=== PATIENT | male | born 1990 | race African-American/Black ===

== ENCOUNTER 2020-04-07 08:02 | Observation (INO) | payer OTHER ==
[~2020-04-07] VITALS: Ht 172.7 cm; Wt 91.2 kg
[2020-04-07] MEDS ORDERED: NS 2,500 ML in IV 1 EA IV ONE (08:30)
[2020-04-07] MEDS ORDERED: ACETAMINOPHEN 500 MG TAB PO ONE (08:30)
[2020-04-07 09:30] LABS: BASO # 0.1 10^3/uL (0.0-0.2); BASO % 0.6 % (0.0-1.0); EOS # 0.4 10^3/uL (0.0-0.5); EOS % 2.6 % (0.0-3.0); HEMATOCRIT 46.4 % (42.0-52.0); HEMOGLOBIN 14.4 g/dl (13.5-17.5); LYMPH # 4.3 10^3/uL (1.5-5.0); LYMPH % 27.9 % (24.0-44.0); MEAN CORPUSCULAR HEMOGLOBIN 22.7 pg (27.0-33.0); MEAN CORPUSCULAR VOLUME 73.3 fl (80.0-96.0); MONO # 0.8 10^3/uL (0.0-0.8); MONO % 4.9 % (0.0-5.0); NEUTROPHILS # 9.1 10^3/uL (1.5-8.5); NEUTROPHILS % 59.5 % (36.0-66.0); PLATELET COUNT, AUTOMATED 227 10^3/uL (150-450); RED BLOOD COUNT 6.33 10^6/uL (4.30-6.10); WHITE BLOOD COUNT 15.3 10^3/uL (4.0-10.0)
--- NOTE | 2020-04-07 09:35 | REPVR ---
PROCEDURE INFORMATION: Exam: XR Chest, 1 View Exam date and time: 04/07/2020 8:41 AM Age: 30 years old Clinical indication: Cough and dyspnea; Additional info: Dyspnea/cough TECHNIQUE: Imaging protocol: XR of the chest Views: 1 view. COMPARISON: No relevant prior studies available. FINDINGS: Lungs: Low lung volumes. No consolidation. Pleural space: Unremarkable. No pleural effusion. No pneumothorax. Heart/Mediastinum: Unremarkable. No cardiomegaly. Bones/joints: Unremarkable. IMPRESSION: No acute abnormalities are identified. Electronically signed by: Prince Pierce On 04/07/2020 09:35:09 AM
[2020-04-07 09:59] LABS: ALBUMIN 3.9 GM/DL (3.2-5.2); BILIRUBIN,DIRECT 0.1 MG/DL (0.0-0.2); BILIRUBIN,TOTAL 0.3 MG/DL (0.2-1.0); CALCIUM LEVEL 9.1 MG/DL (8.5-10.1); CK-MB VALUE MASS 6.7 NG/ML (<3.6); CREATININE FOR GFR 2.72 MG/DL (0.70-1.30); GLOMERULAR FILTRATION RATE 29.4 (>60); MB/CK RELATIVE INDEX 0.13 (< OR =4); POTASSIUM SERUM 4.3 MEQ/L (3.5-5.1); THYROID STIMULATING HORMONE 0.938 uIU/ML (0.358-3.740); THYROXINE (T4) 8.5 UG/DL (4.5-12.0); TOTAL PROTEIN 7.5 GM/DL (6.4-8.2); TROPONIN I 0.18 NG/ML (< 0.10)
[2020-04-07] MEDS ORDERED: PIPERACILLIN/TAZOBACTAM SOD 3.375 GM in D5W MINI-BAG PLUS 50 ML IV ONE (11:00)
[2020-04-07 16:10] VITALS: BP 106/71
[2020-04-07] MEDS: ENOXAPARIN 40MG/0.4ML SYRINGE (J1650 PER 10MG) SC SCH (16:52)
[2020-04-07] MEDS: ACETAMINOPHEN 500 MG TAB PO PRN (16:56)
[2020-04-07 22:00] VITALS: BP 112/68
[2020-04-08] MEDS: ACETAMINOPHEN 500 MG TAB PO PRN ×3 (01:14→20:23)
[2020-04-08 05:58] LABS: HEMOGLOBIN 13.2 g/dl (13.5-17.5); MEAN CORPUSCULAR HEMOGLOBIN 23.2 pg (27.0-33.0); MEAN CORPUSCULAR HGB CONC 31.4 g/dl (32.0-36.5); MEAN CORPUSCULAR VOLUME 73.8 fl (80.0-96.0); PLATELET COUNT, AUTOMATED 157 10^3/uL (150-450); RED BLOOD COUNT 5.69 10^6/uL (4.30-6.10); WHITE BLOOD COUNT 9.9 10^3/uL (4.0-10.0)
[2020-04-08 06:00] VITALS: BP 119/69
[2020-04-08 06:23] LABS: CALCIUM LEVEL 8.4 MG/DL (8.5-10.1); CREATININE FOR GFR 2.85 MG/DL (0.70-1.30); GLOMERULAR FILTRATION RATE 33.8 (>60); POTASSIUM SERUM 3.7 MEQ/L (3.5-5.1)
[2020-04-08] MEDS: ENOXAPARIN 40MG/0.4ML SYRINGE (J1650 PER 10MG) SC SCH (09:27)
[2020-04-08 14:00] VITALS: BP 115/72
[2020-04-08] MEDS ORDERED: LR 1,000 ML IV ONE (15:00)
[2020-04-08] MEDS: traMADol 50 MG TAB PO PRN ×2 (15:11→22:08)
[2020-04-08] MEDS: LR 1,000 ML IV SCH (16:31)
--- NOTE | 2020-04-08 19:56 | HPEPDOC ---
[facility] Medical History & Physical Date of Admission Apr 07, 2020 Date of Service: Apr 07, 2020 History and Physical Chief complaint: Loss of consciousness History of present illness: 30-year-old male with no significant past medical history presented to the following loss of consciousness episode during his PT test for assessment. Patient reports feeling fairly warm and denies having memory. He was very lethargic on presentation and noted diffuse discomfort in his arms and legs. No shortness of breath or chest pain. He denies nausea vomiting prior to today's episode. No sick contacts. Denies previous such episode Past Medical History: None Past Surgical History: No recent Allergies: No known Medications:none Family History: - no cudden deaths, no cardiac disorders in the faamily, no arrythmias, no hx of [place] at a young age Social History: - Denies the use of alcohol, tobacco or illicit drugs - Denies recent travel or sick contacts - Lives with and two kids - Occupation Review of Systems: [10 point review of systems complete, all negative otherwise stated in HPI] Constitutional: Denies weight loss, change in appetite, or recent trauma Eyes: No visual changes or eye pain Ears, Nose, Throat: Denies nose bleeds, or difficulty swallowing Cardiovascular: Denies chest pain, sweating, or orthopnea Respiratory: Denies cough, wheezing, or shortness of breath GI: Natan nausea, vomiting, abdominal pain, diarrhea or constipation : Denies pain with urination or frequency Musculoskeletal: Denies joint pain or swelling Neuro / Psych: Denies muscle weakness or sensory loss Skin: No skin rashes noted All other review of systems negative; otherwise stated in history of present illness Physical exam: vitals see below - General: Lying in bed, No acute distress, Speaking in full sentences, AAOx3 - HEENT: NC, AT, PERRLA, EOMI - CVS: RRR, +S1S2, - Murmurs / rubs / gallops - Lungs: Fair air entry bilaterally, Clear to auscultation, No wheezing / rales / rhonchi - Abdomen: Soft, Non-distended, Non-tender, + Bowel sounds x 4 - Extremities: + PPx4, No lower extremity edema, No calf tenderness - Neuro: No focal motor or sensory deficit - Skin: No visible rashes Labs: see below Imaging: ncxr reviwed EKG: no blocks Assessment and Plan: 1. Syncope: will obtain 08/09 without any structural causes. Suspecting likely secondary to rhabdomyolysis. 2. RAMIRO: suspecting secondary to myoglobin injury, continue IV hydration 3. Possible heatstroke: will monitor DVT prophylaxis - Will start lovenox 40mg sq Vital Signs Vital Signs Date Time Temp Pulse Resp B/P (MAP) Pulse Ox O2 Delivery O2 Flow Rate FiO2 04/08/20 15:41 18 04/08/20 14:00 97.5 70 115/72 (86) 98 Room Air Laboratory Data Labs 24H Laboratory Tests 2 04/08/20 05:30: Nucleated Red Blood Cells % (auto) 0.0, Anion Gap 8, Glomerular Filtration Rate 33.8L, Calcium Level 8.4L CBC/BMP Laboratory Tests 04/08/20 05:30 Microbiology Microbiology 04/07/20 Blood Culture - Preliminary, Resulted No growth after 24 hours . All specim... 04/07/20 Urine Culture - Final, Complete 04/07/20 Respiratory Virus Panel (PCR) (IAN) - Final, Complete Human Rhinovirus/Enterovirus 04/07/20 Blood Culture - Preliminary, Resulted No growth after 24 hours . All specim... 04/07/20 Blood Culture - Preliminary, Resulted No growth after 24 hours . All specim... Home Medications No Active Prescriptions or Reported Meds Allergies Coded Allergies: No Known Allergies (Unverified , 04/07/20) A-FIB/CHADSVASC A-FIB History Current/History of A-Fib/PAF?: No Current PO Anticoag Therapy: No BENY COLÓN DO Apr 08, 2020 19:56
[2020-04-08 22:00] VITALS: BP 118/74
--- NOTE | 2020-04-08 23:58 | IPNPDOC ---
Text Note Date of Service The patient was seen on 04/08/20. NOTE SUBJECTIVE: reports persistent weakness diffusely OBJECTIVE: FOCUSED EXAMINATION: General: Pleasant, NAD HEENT: NC, AT. EOMI, no scleral icterus. No pharyngeal erythema, mucous membranes moist. Neck: No lymphadenopathy or JVD CV: RRR, Normal S1 and S2. No murmurs, gallops, or rubs. Resp: CTAB with full breath sounds. No wheezes, crackles, or rhonchi. No dullness to percussion. Abdomen: Bowel sounds present. Soft, NT, ND. Extremities: No swelling or edema. VITAL SIGNS: Please see below. ASSESSMENT and PLAN: 1. RAMIRO: seconbdary to rhabdo. started IVF, will avoid nephrotoxic agents VS,Fishbone, I+O VS, Fishbone, I+O Laboratory Tests 04/08/20 05:30 Vital Signs Date Time Temp Pulse Resp B/P (MAP) Pulse Ox O2 Delivery O2 Flow Rate FiO2 04/08/20 22:08 16 04/08/20 22:00 98.3 66 118/74 (89) 97 Room Air I&O- Last 24 Hours up to 6 AM 04/08/20 06:00 Intake Total 3170 ml Output Total 1825 ml Balance 1345 ml BENY COLÓN DO Apr 08, 2020 23:58
[2020-04-09] MEDS ORDERED: ONDANSETRON 4 MG ORAL DISINTEGRATING TAB PO ONE (04:15)
[2020-04-09] MEDS: traMADol 50 MG TAB PO PRN ×2 (04:33→10:39)
[2020-04-09] MEDS: LR 1,000 ML IV SCH (04:34)
[2020-04-09 06:00] VITALS: BP 118/73
[2020-04-09 09:27] LABS: HEMATOCRIT 40.3 % (42.0-52.0); HEMOGLOBIN 12.6 g/dl (13.5-17.5); MEAN CORPUSCULAR HEMOGLOBIN 23.2 pg (27.0-33.0); MEAN CORPUSCULAR HGB CONC 31.3 g/dl (32.0-36.5); MEAN CORPUSCULAR VOLUME 74.1 fl (80.0-96.0); PLATELET COUNT, AUTOMATED 166 10^3/uL (150-450); RED BLOOD COUNT 5.44 10^6/uL (4.30-6.10); WHITE BLOOD COUNT 6.7 10^3/uL (4.0-10.0)
[2020-04-09 09:46] LABS: CALCIUM LEVEL 8.3 MG/DL (8.5-10.1); CREATININE FOR GFR 2.04 MG/DL (0.70-1.30); GLOMERULAR FILTRATION RATE 49.7 (>60); POTASSIUM SERUM 3.8 MEQ/L (3.5-5.1)
[2020-04-09] MEDS: ENOXAPARIN 40MG/0.4ML SYRINGE (J1650 PER 10MG) SC SCH (10:37)
--- NOTE | 2020-04-12 12:14 | ECHO ---
DATE OF PROCEDURE: 04/07/2020 Age: 30 REFERRING PHYSICIAN: Dr. Baldwin REASON FOR STUDY: Syncope. 2D MEASUREMENTS: IVS 1.1 cm LV 4.3 cm LVPW 0.8 LA 2.8 cm Aorta 2.7 cm IVC 1.8 cm DOPPLER MEASUREMENT Peak velocity across the aortic valve 1.1 mm/s Peak velocity across the LVOT 0.9 mm/s Mitral E 0.9 Mitral A 0.74 with a ratio of 1.3 2D COMMENTS: 1. Normal left ventricle size, wall thickness, and normal global left ventricular systolic function. The estimated left ventricular ejection fraction is 60% to 65%. 2. Normal left atrium. Normal right atrium and right ventricle. 3. The atrial septum appears to normal without evidence of defect or shunt. 4. Normal aortic root. 5. No pericardial effusion seen. 6. The aortic valve, mitral valve, and tricuspid valve, as well as the pulmonic valve appear to be normal. The proximal pulmonary artery branches were not well visualized. 7. The inferior vena cava was normal in size. Central venous pressure is mostly likely normal. DOPPLER: It shows no significant valvular abnormalities detected. Abnormal relaxation pattern was noted across the mitral valve leaflets, as well as the mitral valve annulus consistent with features of grade 1 left ventricular diastolic dysfunction. IMPRESSION: 1. Normal global left ventricular systolic function. There are some features of left ventricular diastolic dysfunction manifested by abnormal relaxation. 2. No valvular abnormalities detected. MTDD
--- NOTE | 2020-04-13 17:04 | REP ---
ABDOMINAL RADIOGRAPH CLINICAL: Abdominal pain. TECHNIQUE: Single supine view of the abdomen and pelvis. FINDINGS: Bowel gas pattern is nonspecific. No organomegaly. No abnormal calcifications or foreign body. Skeletal structures are intact. IMPRESSION: Normal nonspecific abdominal radiograph. MTDD
--- NOTE | 2020-04-19 09:19 | ECGEPIP ---
[facility] - ED Test Date: 2020-04-07 Pat Name: KOLTON TERRAZAS Department: Room: - Gender: Male Scientific Aide: DESMOND : 1990 Requested By: JULIA Hansen Order Number: [id number] Reading MD: Hetal Diaz Measurements Intervals [place] Rate: 139 P: 52 TX: 126 QRS: 58 QRSD: 80 T: 251 QT: 267 QTc: 407 Interpretive Statements SINUS TACHYCARDIA MODERATE T-WAVE ABNORMALITY, CONSIDER LATERAL ISCHEMIA MODERATE T-WAVE ABNORMALITY, CONSIDER INFERIOR ISCHEMIA ABNORMAL ECG CLINICAL CORRELATE SEE SCANNED DOWNTIME REPORT
--- NOTE | 2020-05-03 11:48 | REP ---
SACRUM AND COCCYX STUDY CLINICAL: Pain on palpation. TECHNIQUE: Three total views of the sacrum and coccyx. FINDINGS: The sacrum and coccyx, as well as the bilateral sacroiliac joints appear symmetric and essentially normal. No obvious pathology is appreciated. IMPRESSION: Age appropriate sacrum and coccyx radiograph series. [facility]
== END 2020-04-09 15:31 | disposition home or self-care (01) ==
LOC: EDBD 08:02 → M ED 08:02 → M ED INP 08:03 → M MSPAV 15:09 → ENRESERV 15:17 → M MSPAV 17:05
PROVIDERS: ADMIT Internal Medicine; ATTEND Internal Medicine
DX: M62.82 Rhabdomyolysis (principal); N17.9 Acute kidney failure, unspecified; B34.8 Other viral infections of unspecified site
CPT/HCPCS: 36415; 71045; 72220; 74018; 80048; 80076; 81001; 82550; 82553; 82570; 83605; 84145; 84300; 84436; 84443; 84484; 85025; 85027; 87040; 87086; 87486; 87581; 87633; 87798; 93005; 93041; 93306; 94760; 96361; 96365; 96372; 97161; 97530; 99285; J1650; J2543; Q0162

== ENCOUNTER → 2020-08-04 | Outpatient (CLI) | payer OTHER | LOC: M LABSMTC 12:47 | PROVIDERS: ATTEND Family Medicine | DX: Z20.828 Contact with and (suspected) exposure to other viral communicable diseases (principal) ==

== ENCOUNTER → 2021-05-17 | Outpatient (REF) | payer OTHER ==
[2021-05-17 13:34] LABS: APPEARANCE, URINE CLEAR (CLEAR); BACTERIA, URINE AUTO NEGATIVE (NEGATIVE); BILIRUBIN, URINE AUTO NEGATIVE (NEGATIVE); BLOOD, URINE BLOOD NEGATIVE (NEGATIVE); COLOR, URINE YELLOW (YELLOW); GLUCOSE, URINE (UA) AUTO NEGATIVE (NEGATIVE); KETONE, URINE AUTO NEGATIVE (NEGATIVE); LEUKOCYTE ESTERASE, URINE AUTO 1+ (NEGATIVE); MUCUS, URINE SMALL (NEGATIVE); NITRITE, URINE AUTO NEGATIVE (NEGATIVE); PROTEIN, URINE AUTO NEGATIVE (NEGATIVE); RBC, URINE AUTO 1 /HPF (0-3); SPECIFIC GRAVITY URINE AUTO 1.018 (1.002-1.035); SQUAMOUS EPITHELIAL CELL UR AU 0 /HPF (0-6); UROBILINOGEN, URINE AUTO 0.2 mg/dL (0.0-2.0); WBC, URINE AUTO 11 /HPF (0-3)
[2021-05-17 13:41] LABS: BASO # 0.1 10^3/uL (0.0-0.2); BASO % 0.9 % (0.0-1.0); EOS # 0.2 10^3/uL (0.0-0.5); EOS % 2.8 % (0.0-3.0); HEMATOCRIT 48.3 % (42.0-52.0); HEMOGLOBIN 14.8 g/dl (13.5-17.5); LYMPH # 2.1 10^3/uL (1.5-5.0); LYMPH % 31.9 % (24.0-44.0); MEAN CORPUSCULAR HEMOGLOBIN 22.6 pg (27.0-33.0); MEAN CORPUSCULAR HGB CONC 30.6 g/dl (32.0-36.5); MEAN CORPUSCULAR VOLUME 73.7 fl (80.0-96.0); MONO # 0.5 10^3/uL (0.0-0.8); MONO % 8.2 % (2.0-8.0); NEUTROPHILS # 3.6 10^3/uL (1.5-8.5); NEUTROPHILS % 55.9 % (36.0-66.0); PLATELET COUNT, AUTOMATED 263 10^3/uL (150-450); RED BLOOD COUNT 6.55 10^6/uL (4.30-6.10); WHITE BLOOD COUNT 6.4 10^3/uL (4.0-10.0)
[2021-05-17 13:57] LABS: ALBUMIN 4.2 GM/DL (3.2-5.2); ALT/SGPT 49 U/L (12-78); BILIRUBIN,TOTAL 0.6 MG/DL (0.2-1.0); BLOOD UREA NITROGEN 14 MG/DL (7-18); C REACTIVE PROTEIN QUANTITATIV 0.38 MG/DL (0.00-0.30); CALCIUM LEVEL 9.7 MG/DL (8.5-10.1); CARBON DIOXIDE LEVEL 29 MEQ/L (21-32); CHLORIDE LEVEL 108 MEQ/L (98-107); CPK CREATINE PHOSPHOKINASE 1842 U/L (39-308); CREATININE FOR GFR 1.58 MG/DL (0.70-1.30); GLOMERULAR FILTRATION RATE 54.7 (>60); GLUCOSE, FASTING 97 MG/DL (70-100); LDH LACTATE DEHYDROGENASE 220 U/L (87-241); POTASSIUM SERUM 4.1 MEQ/L (3.5-5.1); RHEUMATOID FACTOR QUANT < 10.0 IU/ML (<15.0); SODIUM LEVEL 141 MEQ/L (136-145); TOTAL PROTEIN 7.9 GM/DL (6.4-8.2)
[2021-05-17 14:06] LABS: ERYTHROCYTE SEDIMENTATION RATE 2 mm/hr (0-15)
[2021-05-17 14:23] LABS: TOTAL PROTEIN,RANDOM URINE 17.9 MG/DL (0.0-12.0)
[2021-05-23 15:07] LABS: ALDOLASE 12.1 U/L (3.3-10.3); ANA (HEP2) Negative (.); CYCLIC CITRULLINATED PEPTIDE 7 units (0-19); HLA-B27 Negative (.)
== END ==
LOC: M SFHCRHEU 10:26
PROVIDERS: ATTEND Internal Medicine Rheumatology
DX: M54.6 Pain in thoracic spine (principal); Z87.39 Personal history of other diseases of the musculoskeletal system and connective tissue

== ENCOUNTER → 2022-01-27 | Outpatient (REF) | payer OTHER ==
[2022-01-30 11:12] LABS: ANTINUCLEAR ANTIBODIES DIRECT Negative (Negative)
== END ==
LOC: M LAB REF 16:55
PROVIDERS: ATTEND Internal Medicine Nephrology
DX: N18.31 Chronic kidney disease, stage 3a (principal)

== ENCOUNTER → 2022-02-16 | Outpatient (CLI) | payer OTHER | LOC: M RAD 09:32 | PROVIDERS: ATTEND Internal Medicine Nephrology | DX: N18.31 Chronic kidney disease, stage 3a (principal) ==

== ENCOUNTER → 2022-04-20 | Outpatient (REF) | payer OTHER ==
[2022-04-20 12:41] LABS: BASO # 0.1 10^3/uL (0.0-0.2); BASO % 0.9 % (0.0-1.0); EOS # 0.3 10^3/uL (0.0-0.5); EOS % 5.2 % (0.0-3.0); HEMATOCRIT 47.4 % (42.0-52.0); HEMOGLOBIN 14.4 g/dl (13.5-17.5); LYMPH # 1.9 10^3/uL (1.5-5.0); LYMPH % 33.6 % (24.0-44.0); MEAN CORPUSCULAR HEMOGLOBIN 22.5 pg (27.0-33.0); MEAN CORPUSCULAR HGB CONC 30.4 g/dl (32.0-36.5); MEAN CORPUSCULAR VOLUME 73.9 fl (80.0-96.0); MONO # 0.5 10^3/uL (0.0-0.8); MONO % 9.1 % (2.0-8.0); NEUTROPHILS # 2.8 10^3/uL (1.5-8.5); NEUTROPHILS % 50.8 % (36.0-66.0); PLATELET COUNT, AUTOMATED 242 10^3/uL (150-450); RED BLOOD COUNT 6.41 10^6/uL (4.30-6.10); WHITE BLOOD COUNT 5.6 10^3/uL (4.0-10.0)
[2022-04-20 13:08] LABS: ERYTHROCYTE SEDIMENTATION RATE 2 mm/hr (0-15)
[2022-04-20 13:32] LABS: BILIRUBIN,TOTAL 0.6 MG/DL (0.2-1.0); C REACTIVE PROTEIN QUANTITATIV 0.56 MG/DL (0.00-0.30); CALCIUM LEVEL 9.3 MG/DL (8.5-10.1); CREATININE FOR GFR 1.59 MG/DL (0.70-1.30); POTASSIUM SERUM 4.6 MEQ/L (3.5-5.1); TOTAL PROTEIN 7.6 GM/DL (6.4-8.2)
== END ==
LOC: M SFHCRHEU 09:15
PROVIDERS: ATTEND Internal Medicine Rheumatology
DX: M54.6 Pain in thoracic spine (principal); Z87.39 Personal history of other diseases of the musculoskeletal system and connective tissue

== ENCOUNTER → 2022-04-21 | Outpatient (REF) | payer OTHER ==
[2022-04-21 18:56] LABS: CREATININE CLEARANCE, URINE 165.2 ML/MIN (85-125); CREATININE, SERUM 1.4 MG/DL (0.6-1.3)
== END ==
LOC: M LAB REF 17:14
PROVIDERS: ATTEND Internal Medicine Nephrology
DX: N18.31 Chronic kidney disease, stage 3a (principal)